=== PATIENT | female | born 1940 | race Caucasian/White ===

== ENCOUNTER 2019-04-20 18:15 | Emergency (ER) | payer MEDICARE, OTHER ==
[~2019-04-20] VITALS: Ht 152.4 cm; Wt 63.5 kg
[2019-04-20 18:20] VITALS: BP 199/90
--- NOTE | 2019-04-20 18:28 | NUR ---
Patient ambulated to bed 4 with family. RN evaluating patient at bedside.
--- NOTE | 2019-04-20 18:35 | NUR ---
PATIENT BIB DAUGHTER WITH C/O ASYMPTOMATIC HIGH BP WHEN WENT TO URGENT CARE FOR MED REFILL TODAY AND REFERRED TO COME TO ER FOR HTN. STATED DON'T REMEMBER IF TAKE BP MEDICATION THIS MORNING OR NOT. DENIES N/V/D; LUNGS CLEAR BL; HR EVEN AND REGULAR; PT DENIES ANY FEVER, CP, SOB, OR COUGH AT THIS TIME; DENIES PAIN, VSS; PATIENT POSITIONED FOR COMFORT; HOB ELEVATED; BEDRAILS UP X2; BED DOWN. ER MD MADE AWARE OF PT STATUS.
--- NOTE | 2019-04-20 18:36 | NUR ---
Patient being evaluated by physician at bedside.
[2019-04-20] MEDS ORDERED: LOSARTAN 50 MG TAB PO SCH (18:40)
[2019-04-20 19:00] VITALS: BP 168/83
--- NOTE | 2019-04-20 19:00 | NUR ---
Patient discharged with v/s stable. Written and verbal after care instructions given and explained. Patient alert, oriented and verbalized understanding of instructions. Ambulatory with steady gait. All questions addressed prior to discharge. ID band removed. Patient advised to follow up with PMD. Rx of TRAZODONE, LOSARTAN given. Patient educated on indication of medication including possible reaction and side effects. Opportunity to ask questions provided and answered.
== END 2019-04-20 19:00 | disposition home or self-care (01) ==
LOC: MED 18:15
DX: I10 Essential (primary) hypertension (principal); R01.1 Cardiac murmur, unspecified; G47.00 Insomnia, unspecified; R11.2 Nausea with vomiting, unspecified
CPT/HCPCS: 99283